=== PATIENT | male | born 1955 | race Caucasian/White ===

== ENCOUNTER 2018-01-01 21:00 | Emergency (ER) | payer OTHER ==
--- NOTE | 2018-01-01 21:07 | ER Report ---
History and Physical Time Seen By MD: 21:06 HPI/ROS CHIEF COMPLAINT: Cough, difficulty breathing HISTORY OF PRESENT ILLNESS: 62-year-old male whose been here in [place] one week. He has history of COPD and continues to smoke. He was treated with a course of Augmentin and prednisone and finished 2 weeks ago. He's continued to cough. His cough is gotten worse over the last week since he's been here in [place]. Tonight he has severe coughing fits is unable to keep his breath. He notes no fever or chills. Patient notes no chest pain. REVIEW OF SYSTEMS: Respiratory: As above Cardiovascular: No chest pain, no palpitations. Gastrointestinal: No vomiting, no abdominal pain. Musculoskeletal: No back pain. Allergies: Coded Allergies: No Known Drug Allergies (Unverified , 01/01/18) Home Meds Active Scripts Levofloxacin 500 Mg Tab (LEVAQUIN 500 MG TAB) 500 Mg Tablet, 500 MG PO DAILY for infection, #7 TAB Prov:ROSA JERONIMO DO 01/01/18 Prednisone (PREDNISONE) 20 Mg Tablet, 40 MG PO QDAY for reduce lung inflammation , #14 Prov:ROSA JERONIMO DO 01/01/18 Reported Medications Aspirin (ASPIRIN) 81 Mg Tab.chew, 81 MG PO QDAY, TAB.CHEW 01/01/18 Isosorbide Dinitrate (ISOSORBIDE DINITRATE) 10 Mg Tablet, 10 MG PO 01/01/18 Carvedilol Phosphate (Carvedilol ER) 10 Mg Cpmp.24hr, 13 MG PO 01/01/18 Amiodarone Hcl (AMIODARONE HCL) 200 Mg Tablet, 200 MG PO BID 01/01/18 Eplerenone (EPLERENONE) 25 Mg Tablet, 12.5 MG PO 01/01/18 Atorvastatin (LIPITOR) 80 Mg Tab, 1 TAB PO QDAY, TAB 01/01/18 Sacubitril/Valsartan (Entresto 24 mg-26 mg Tablet) 1 Each Tablet, 24 MG 1-2XD 01/01/18 Past Medical/Surgical History COPD, hypertension, cardiac disease, status post pacemaker and AICD Reviewed Nurses Notes: Yes Old Medical Records Reviewed: Yes Constitutional Vital Sign - Last 24 Hours 01/01/18 01/01/18 01/01/18 01/01/18 21:17 21:32 21:32 21:33 Temp 97.9 Pulse 79 79 Resp 17 14 B/P (MAP) 140/79 Pulse Ox 87 94 O2 Delivery Room Air Nasal Cannula O2 Flow Rate 2.0 2.0 01/01/18 01/01/18 21:41 21:41 Pulse 83 Resp 14 Pulse Ox 98 O2 Delivery Nasal Cannula O2 Flow Rate 2.0 Physical Exam Vital signs stable, afebrile, pulse ox 87% on room air. General Appearance: The patient is alert, has no immediate need for airway protection and no current signs of toxicity. Skin warm, dry, pink, repetitive coughing fits HEENT: Pupils equal and round no injection. Oropharynx with mild erythema, no exudate Respiratory: Chest is non tender, expiratory wheezing and rhonchi in both lungs , no Rales Cardiac: regular rate and rhythm Gastrointestinal: Abdomen is soft and non tender, no masses, bowel sounds normal. Musculoskeletal: Neck: Neck is supple and non tender. Extremities have full range of motion and are non tender. Skin: No rashes or lesions. DIFFERENTIAL DIAGNOSIS: After history and physical exam differential diagnosis was considered for shortness of breath including but not limited to pulmonary infectious process, COPD, asthma, pulmonary embolus and congestive heart failure. Medical Decision Making Data Points Result Diagram: 01/01/18212901/01/182129 Laboratory Hematology Test 01/01/18 21:30 Red Blood Count 4.59 M/uL (4.00-5.60) Mean Corpuscular Volume 90.3 fL (80.0-96.0) Mean Corpuscular Hemoglobin 31.3 pg (26.0-33.0) Mean Corpuscular Hemoglobin Concent 34.7 g/dL (32.0-36.0) Red Cell Distribution Width 13.8 % (11.5-14.5) Mean Platelet Volume 6.8 fL (7.2-11.1) Neutrophils (%) (Auto) 50.4 % (39.4-72.5) Lymphocytes (%) (Auto) 31.1 % (17.6-49.6) Monocytes (%) (Auto) 7.7 % (4.1-12.4) Eosinophils (%) (Auto) 9.5 % (0.4-6.7) Basophils (%) (Auto) 1.3 % (0.3-1.4) Nucleated RBC Relative Count (auto) 0.1 /100WBC Neutrophils # (Auto) 5.2 K/uL (2.0-7.4) Lymphocytes # (Auto) 3.2 K/uL (1.3-3.6) Monocytes # (Auto) 0.8 K/uL (0.3-1.0) Eosinophils # (Auto) 1.0 K/uL (0.0-0.5) Basophils # (Auto) 0.1 K/uL (0.0-0.1) Nucleated RBC Absolute Count (auto) 0.01 K/uL Prothrombin Time 12.8 seconds (12.0-14.4) Prothromb Time International Ratio 0.96 Activated Partial Thromboplast Time 30 seconds (23-35) D-Dimer Quantitative (PE/DVT) 0.32 ug/ml (0-0.50) Sodium Level 141 mmol/L (137-145) Potassium Level 3.9 mmol/L (3.5-5.0) Chloride Level 102 mmol/L (98-107) Carbon Dioxide Level 27 mmol/L (22-30) Blood Urea Nitrogen 14 mg/dl (9-21) Creatinine 1.30 mg/dl (0.66-1.25) Glomerular Filtration Rate Calc 55.9 Random Glucose 119 mg/dl (75-110) Lactate 1.1 mmol/L (0.7-2.1) Calcium Level 9.6 mg/dl (8.4-10.2) Total Bilirubin 0.5 mg/dl (0.2-1.3) Aspartate Amino Transf (AST/SGOT) 26 U/L (0-35) Alanine Aminotransferase (ALT/SGPT) 33 U/L (0-56) Alkaline Phosphatase 93 U/L (0-126) Troponin I < 0.012 ng/ml B-Type Natriuretic Peptide 56 pg/ml (0-100) Total Protein 7.0 g/dl (6.3-8.2) Albumin 4.0 g/dl (3.5-5.0) Chemistry Test 01/01/18 21:30 White Blood Count 10.3 k/uL (4.5-11.0) Red Blood Count 4.59 M/uL (4.00-5.60) Hemoglobin 14.4 g/dL (14.0-18.0) Hematocrit 41.4 % (42.0-52.0) Mean Corpuscular Volume 90.3 fL (80.0-96.0) Mean Corpuscular Hemoglobin 31.3 pg (26.0-33.0) Mean Corpuscular Hemoglobin Concent 34.7 g/dL (32.0-36.0) Red Cell Distribution Width 13.8 % (11.5-14.5) Platelet Count 277 K/uL (150-450) Mean Platelet Volume 6.8 fL (7.2-11.1) Neutrophils (%) (Auto) 50.4 % (39.4-72.5) Lymphocytes (%) (Auto) 31.1 % (17.6-49.6) Monocytes (%) (Auto) 7.7 % (4.1-12.4) Eosinophils (%) (Auto) 9.5 % (0.4-6.7) Basophils (%) (Auto) 1.3 % (0.3-1.4) Nucleated RBC Relative Count (auto) 0.1 /100WBC Neutrophils # (Auto) 5.2 K/uL (2.0-7.4) Lymphocytes # (Auto) 3.2 K/uL (1.3-3.6) Monocytes # (Auto) 0.8 K/uL (0.3-1.0) Eosinophils # (Auto) 1.0 K/uL (0.0-0.5) Basophils # (Auto) 0.1 K/uL (0.0-0.1) Nucleated RBC Absolute Count (auto) 0.01 K/uL Prothrombin Time 12.8 seconds (12.0-14.4) Prothromb Time International Ratio 0.96 Activated Partial Thromboplast Time 30 seconds (23-35) D-Dimer Quantitative (PE/DVT) 0.32 ug/ml (0-0.50) Glomerular Filtration Rate Calc 55.9 Lactate 1.1 mmol/L (0.7-2.1) Calcium Level 9.6 mg/dl (8.4-10.2) Total Bilirubin 0.5 mg/dl (0.2-1.3) Aspartate Amino Transf (AST/SGOT) 26 U/L (0-35) Alanine Aminotransferase (ALT/SGPT) 33 U/L (0-56) Alkaline Phosphatase 93 U/L (0-126) Troponin I < 0.012 ng/ml B-Type Natriuretic Peptide 56 pg/ml (0-100) Total Protein 7.0 g/dl (6.3-8.2) Albumin 4.0 g/dl (3.5-5.0) Coagulation Test 01/01/18 21:30 Prothrombin Time 12.8 seconds Prothromb Time International Ratio 0.96 Activated Partial Thromboplast Time 30 seconds D-Dimer Quantitative (PE/DVT) 0.32 ug/ml EKG/Imaging EKG Interpretation 12 lead EK Rhythm: normal sinus rhythm Independence: normal QRS: Old inferior Q waves ST segments: normal, no acute ischemic changes noted. Hopkins no old for comparison Imaging X-ray: Two-view chest x-ray was obtained. I viewed the images myself on the PACS system. My interpretation of the images is: There is a subtle infiltrate noted retrocardiac. The radiologist interpretation had no clinically significant variation from this interpretation. ED Course/Re-evaluation Clinical Indication for ER IV: IV Access ED Course Patient was admitted to an examination room. H&P was done. The differential diagnoses was Considered. Patient was shortness of breath. He has a known history of COPD. He continues to smoke. He's a cough for several weeks. It's unresolved. Diagnostic evaluation is undertaken. Patient's treated with nebulizers. His cough improves. Loudly hypoxic. A d-dimer is unremarkable. EKG is no evidence of gross ischemia. His troponin is negative. His chest x- ray shows a subtle retrocardiac infiltrate. He'll be treated for pneumonia and COPD exacerbation. He is treated with Rocephin and Levaquin. He is discharged home on prednisone 40 mg per day and Levaquin 500 mg per day. Patient advised to follow-up with his primary care physician upon returning home. Decision to Disposition Date: Jan 01, 2018 Decision to Disposition Time: 22:53 Depart Departure Latest Vital Signs Vital Signs Date Time Temp Pulse Resp B/P (MAP) Pulse Ox O2 Delivery O2 Flow Rate FiO2 01/01/18 21:41 98 Nasal Cannula 2.0 01/01/18 21:41 83 14 01/01/18 21:17 97.9 140/79 Impression: Primary Impression: Left lower lobe pneumonia Additional Impression: COPD exacerbation Condition: Improved Disposition: HOME OR SELF-CARE New Scripts Levofloxacin 500 Mg Tab (LEVAQUIN 500 MG TAB) 500 Mg Tablet 500 MG PO DAILY for infection, #7 TAB Prov: ROSA JERONIMO DO 01/01/18 Prednisone (PREDNISONE) 20 Mg Tablet 40 MG PO QDAY for reduce lung inflammation, #14 Prov: ROSA JERONIMO DO 01/01/18 Patient Instructions: Bacterial Pneumonia (ED), COPD (Chronic Obstructive Pulmonary Disease) (ED) Additional Instructions: Use Robitussin-DM for cough suppression Use your inhalers as prescribed Follow-up with your primary care doctor upon returning home Problem Qualifiers Primary Impression: Left lower lobe pneumonia Pneumonia type: due to unspecified organism Qualified Codes: J18.1 - Lobar pneumonia, unspecified organism ROSA JERONIMO DO Jan 01, 2018 21:07
[2018-01-01 21:17] VITALS: BP 140/79
[2018-01-01] MEDS ORDERED: AMIO200T47 PO (21:17)
[2018-01-01] MEDS ORDERED: SACU1TAB (21:17)
[2018-01-01] MEDS ORDERED: ISOS10TA PO (21:17)
[2018-01-01] MEDS ORDERED: EPLE25TA18 PO (21:17)
[2018-01-01] MEDS ORDERED: ASPI81TA94 PO (21:17)
[2018-01-01] MEDS ORDERED: ATR80PT PO (21:17)
[2018-01-01] MEDS ORDERED: CARV10CP PO (21:17)
[2018-01-01] MEDS ORDERED: ALBUTEROL/IPRATROPIUM 3 ML NEB NEB ONE (21:20)
[2018-01-01] MEDS ORDERED: methylPREDNIS SUCC 125 MG/2ML IVP ONE (21:20)
[2018-01-01 21:42] LABS: PLATELET COUNT, AUTOMATED 277 K/uL (150-450)
[2018-01-01 21:56] LABS: INR 0.96
--- NOTE | 2018-01-01 22:25 | EKG ---
FACILITY: [facility] - [place] PATIENT NAME: ELOISA CLEMONS : [id number] MR: [id number] V: [id number] EXAM DATE: ORDERING PHYSICIAN: ROSA JERONIMO TECHNOLOGIST: CARLINE Lincoln Reason : Blood Pressure : / mmHG Vent. Rate : 080 BPM Atrial Rate : 080 BPM P-R Int : 190 ms QRS Dur : 110 ms QT Int : 424 ms P-R-T Axes : 084 029 025 degrees QTc Int : 489 ms Normal sinus rhythm Inferior infarct , age undetermined T inversion/flattening consistent with inferior ischemia vs normal variant No previous ECGs available Confirmed by KIARRA SPENCER ([id number]) on 01/01/2018 10:29:46 PM Referred By: Confirmed By:KIARRA SPENCER
--- NOTE | 2018-01-01 22:45 | RADIOLOGY IMAGING REPORT ---
FACILITY: [facility] - [place] PATIENT NAME: Bud Serrano : 1955 MR: [id number] V: [id number] EXAM DATE: ORDERING PHYSICIAN: ROSA JERONIMO TECHNOLOGIST: Location: [facility] - [place] Patient: Bud Serrano : 1955 Visit/Account:[id number] Date of Sevice: 01/01/2018 CHEST PA AND LAT History: Cough x3 weeks. History of pneumonia. FINDINGS: Comparison studies: None. Tubes and Lines: AICD device in place. Lungs and pleura: Best appreciated on the lateral view is an area of increased segmental consolidat ion in the medial segment of the left lower lobe. This is hidden by the cardiac silhouette on the fro ntal projection. Lung parenchyma is otherwise well-aerated Mediastinum: normal. Cardiac silhouette: normal . Osseous structures: Unremarkable for age . IMPRESSION: Findings suspicious for left lower lobe pneumonia. Report Dictated By: Too Reeder MD at 01/01/2018 10:39 PM Report E-Signed By: Too Reeder MD at 01/01/2018 10:42 PM [id number]
[2018-01-01] MEDS ORDERED: cefTRIAXone 1 GM VIAL IVP ONE (22:50)
[2018-01-01] MEDS ORDERED: LEVOFLOXACIN 500 MG TAB PO ONE ×2 (22:50→23:40)
[2018-01-01] MEDS ORDERED: LEVO-85 PO (22:56)
[2018-01-01] MEDS ORDERED: PRED20TA6 PO (22:56)
[2018-01-01] MEDS ORDERED: predniSONE 20 MG TAB PO ONE (23:40)
== END 2018-01-01 23:26 | disposition home or self-care (01) ==
LOC: ER 21:28
DX: J18.1 Lobar pneumonia, unspecified organism (principal); J44.1 Chronic obstructive pulmonary disease with (acute) exacerbation; R09.02 Hypoxemia; F17.210 Nicotine dependence, cigarettes, uncomplicated
CPT/HCPCS: 71046; 83605; 83880; 84484; 85025; 85379; 85610; 85730; 93005; 94640; 96374; 99284; J0696; J2930; J7512; J7620; 82040; 82247; 82310; 82374; 82435; 82565; 82947; 84075; 84132; 84155; 84295; 84450; 84460; 84520